=== PATIENT | female | born 1980 | race Caucasian/White ===

== ENCOUNTER 2016-12-07 10:22 | Emergency (ER) | payer MEDICAID | END 2016-12-07 11:40 | disposition home or self-care (01) | LOC: D.ER 10:22 | DX: R07.9 Chest pain, unspecified (principal) ==

== ENCOUNTER 2017-10-17 16:02 | Emergency (ER) | payer MEDICAID ==
[2017-10-17 16:55] LABS: BASOPHILS 0.9 % (0-2); EOSINOPHILS 2.3 % (0-7); HEMATOCRIT 43.7 % (36.0-48.0); HEMOGLOBIN 14.6 g/dL (12-16); IMMATURE GRANULOCYTES 0.1 % (0-5); LYMPHOCYTES 39.7 % (15-50); MCH 29.9 pg (26.0-34.0); MCHC 33.4 g/dL (31.0-37.0); MCV 89.5 fL (80.0-100.0); MEAN PLATELET VOLUME 9.8 fL (7.4-10.4); MONOCYTES 6.1 % (2-11); NEUTROPHILS 50.9 % (40-80); PLATELET COUNT 217 10x3/uL (130-400); RBC 4.88 10x6/uL (4.00-5.40); RDW 14.2 % (11.5-14.5); WBC 7.8 10x3/uL (4.8-10.8)
[2017-10-17 17:15] LABS: ALBUMIN 4.2 g/dL (3.4-5.0); ALKALINE PHOSPHATASE 67 U/L (46-116); ALT (SGPT) 20 U/L (10-68); BILIRUBIN - TOTAL 0.18 mg/dL (0.2-1.3); CALC OSMOLALITY 275 mosm/kg (275-300); CALCIUM 8.9 mg/dL (8.5-10.1); CARBON DIOXIDE 29.6 mmol/L (21.0-32.0); CHLORIDE - SERUM 102 mmol/L (98-107); CREATININE - SERUM 0.7 mg/dL (0.6-1.3); GLUCOSE 80 mg/dL (74-106); POTASSIUM - SERUM 3.6 mmol/L (3.5-5.1); SODIUM 140 mmol/L (136-145); UREA NITROGEN 6 mg/dL (7-18); eGFR NON AFRICAN AMERICAN > 90 mL/min (90-120)
[2017-10-17 17:20] LABS: APPEARANCE CLEAR (CLEAR); BILIRUBIN NEGATIVE (NEGATIVE); COLOR YELLOW (YELLOW); GLUCOSE NEGATIVE (NEGATIVE); KETONE NEGATIVE (NEGATIVE); NITRITE NEGATIVE (NEGATIVE); PROTEIN NEGATIVE (NEGATIVE); SPECIFIC GRAVITY 1.005 (1.005-1.020); UROBILINOGEN NORMAL (NORMAL)
[2017-10-17 17:22] LABS: WHITE CELLS - URINE 0-5 /hpf (0-5)
[2017-10-17 17:23] LABS: BACTERIA FEW /hpf (NONE SEEN); EPITHELIAL CELLS 0-5 /hpf (0-5); RED CELLS - URINE 0-5 /hpf (0-5)
[2017-10-17 17:26] LABS: HCG SERUM NEGATIVE (NEGATIVE)
== END 2017-10-17 20:10 | disposition home or self-care (01) ==
LOC: D.ER 16:02
PROVIDERS: Emergency Medicine
DX: R10.9 Unspecified abdominal pain (principal)

== ENCOUNTER 2019-12-20 02:36 | Emergency (ER) | payer MEDICAID ==
[~2019-12-20] VITALS: Ht 162.6 cm; Wt 75.5 kg
[2019-12-20 02:40] VITALS: Ht 162.6 cm; Wt 75.5 kg
[2019-12-20] MEDS ORDERED: MEDROL DOSE PACK4 MG PO (02:57)
[2019-12-20 03:26] VITALS: BP 125/78
== END 2019-12-20 03:27 | disposition home or self-care (01) ==
LOC: D.ER 02:36
DX: L50.9 Urticaria, unspecified (principal)

== ENCOUNTER → 2021-01-18 09:24 | Outpatient (CLI) | payer BC ==
[2019-12-20 02:40] VITALS: BMI 28.5
[~2021-01-18 09:24] MED LIST: MEDROL DOSE PACK4 MG PO
== END | disposition home or self-care (01) ==
LOC: D.RAD 09:24
PROVIDERS: ATTEND Pain Medicine Interventional Pain Medicine
DX: M25.561 Pain in right knee (principal)